=== PATIENT | female | born 1980 | race Caucasian/White ===

== ENCOUNTER 2018-01-11 00:53 | Emergency (ER) | payer SELFPAY ==
[2018-01-11 02:25] VITALS: BP 127/81
--- NOTE | 2018-01-11 03:11 | Emergency Department Report ---
ED Extremity Problem HPI - General Chief complaint: Extremity Injury, Lower Stated complaint: INGROWN TOENAIL-RT Time Seen by Provider: 01/11/18 03:06 Source: patient Mode of arrival: Ambulatory Limitations: No Limitations - History of Present Illness Initial comments: 37-year-old female comes in for right toenail pain started 1.5 weeks ago. Patient reports this is read and painful. She reports that she got her nails done and a nail shop and they cut the nail too short. Patient reports that she's been soaking it in Epsom salts and has been taking Tylenol. Patient currently has no allergies she takes no medications and has no past medical history. LMP 12/21/2017. Complaint: extremity pain, extremity swelling -: week(s) (1.5) Location: right History of Same: No Radiation: none Severity scale (0 -10): 7 Quality: aching Consistency: intermittent Improves with: nothing Worsens with: palpation Associated Symptoms: denies other symptoms - Related Data Previous Rx's Medication Instructions Recorded Last Taken Type Ibuprofen 600 mg PO Q8H #15 tablet 01/11/18 Unknown Rx Sulfamethoxazole/Trimethoprim 1 each PO BID #20 tablet 01/11/18 Unknown Rx [Bactrim Ds Tablet] Allergies Allergy/AdvReac Type Severity Reaction Status Date / Time No Known Allergies Allergy Unverified 01/11/18 02:25 ED Review of Systems ROS: Stated complaint: INGROWN TOENAIL-RT Other details as noted in HPI Constitutional: denies: chills, fever Eyes: denies: eye pain, eye discharge, vision change ENT: denies: ear pain, throat pain Respiratory: denies: cough, shortness of breath, wheezing Cardiovascular: denies: chest pain, palpitations Endocrine: no symptoms reported Gastrointestinal: denies: abdominal pain, nausea, diarrhea Genitourinary: denies: urgency, dysuria, discharge Musculoskeletal: denies: back pain, joint swelling, arthralgia Skin: change in hair/nails (right great toe lateral) Neurological: denies: headache, weakness, paresthesias Psychiatric: denies: anxiety, depression Hematological/Lymphatic: denies: easy bleeding, easy bruising ED Past Medical Hx - Past Medical History Previous Medical History?: No - Surgical History Past Surgical History?: No - Social History Smoking Status: Never Smoker Substance Use Type: None - Medications Home Medications: Home Medications Medication Instructions Recorded Confirmed Last Taken Type Ibuprofen 600 mg PO Q8H #15 tablet 01/11/18 Unknown Rx Sulfamethoxazole/Trimethoprim 1 each PO BID #20 tablet 01/11/18 Unknown Rx [Bactrim Ds Tablet] ED Physical Exam - General Limitations: No Limitations General appearance: alert, in no apparent distress - Head Head exam: Present: atraumatic, normocephalic - Eye Eye exam: Present: normal appearance - ENT ENT exam: Present: mucous membranes moist - Neurological Exam Neurological exam: Present: alert, oriented X3 - Psychiatric Psychiatric exam: Present: normal affect, normal mood - Skin Skin exam: Present: erythema (right lateral great toe swelling and erythematous around the cuticle) ED Course Vital Signs 01/11/18 02:16 Temperature 98.4 F Pulse Rate 73 Respiratory 18 Rate Blood Pressure 127/81 O2 Sat by Pulse 95 Oximetry ED Medical Decision Making - Radiology Data Radiology results: report reviewed Unremarkable exam - Medical Decision Making Patient has been evaluated by this provider fast track. X-ray of the extremity was ordered and completed. Discussed the patient placed on antibiotics and pain medication and for her to continue with the warm Epson salt soaks. Discussed with the patient she needs to follow-up with her primary care provider if symptoms persist or gets worse Critical care attestation.: If time is entered above; I have spent that time in minutes in the direct care of this critically ill patient, excluding procedure time. ED Disposition Clinical Impression: Infected cuticle Disposition: DC-01 TO HOME OR SELFCARE Is pt being admited?: No Does the pt Need Aspirin: No Condition: Stable Instructions: Ingrown Nail (ED) Additional Instructions: Take antibiotic as prescribed. Take pain medication as prescribed. Continue with warm Epson salt soaks. Follow up with her primary care provider. Prescriptions: Ibuprofen 600 mg PO Q8H #15 tablet Sulfamethoxazole/Trimethoprim [Bactrim Ds Tablet] 1 each PO BID #20 tablet Referrals: HILDA MARTINEZ MD [Primary Care Provider] - 3-5 Days [facility] [Provider Group] - 3-5 Days
--- NOTE | 2018-01-11 03:41 | XRay Report ---
FINAL REPORT EXAM: XR FOOT 2V RT HISTORY: Right great toe pain and redness. TECHNIQUE: AP and lateral views of the right foot were submitted. FINDINGS: There is no evidence of fracture or soft tissue injury. There is no evidence of osteomyelitis. IMPRESSION: Unremarkable exam.
== END 2018-01-11 03:51 | disposition home or self-care (01) ==
LOC: ED 00:53
DX: M79.674 Pain in right toe(s) (principal); L08.89 Other specified local infections of the skin and subcutaneous tissue
CPT/HCPCS: 99283

== ENCOUNTER 2021-03-12 20:10 | Emergency (ER) | payer SELFPAY ==
[2021-03-12 21:38] LABS: Basophils % (Auto) 0.2 % (0.0-1.8); Eosinophils % (Auto) 0.2 % (0.0-4.3); Hematocrit 40.6 % (30.3-42.9); Hemoglobin 13.6 gm/dl (10.1-14.3); Lymphocytes # (Auto) 1.7 K/mm3 (1.2-5.4); Mean Corpuscular HGB Conc 34 % (30-34); Mean Corpuscular Volume 89 fl (79-97); Monocytes # (Auto) 0.9 K/mm3 (0.0-0.8); Monocytes % (Auto) 5.1 % (0.0-7.3); Platelet Count 302 K/mm3 (140-440); Red Blood Count 4.54 M/mm3 (3.65-5.03); Red Cell Distribution Width 13.1 % (13.2-15.2)
[2021-03-12 21:42] LABS: Alanine Aminotransferase 20 units/L (7-56); Albumin 4.5 g/dL (3.9-5); Blood Urea Nitrogen 14 mg/dL (7-17); Calcium 9.3 mg/dL (8.4-10.2); Hemolysis Index 28
[2021-03-12 21:43] LABS: BUN/Creatinine Ratio 23
[2021-03-12 22:51] LABS: Bilirubin,Urine NEG (Negative); Blood,Urine LG (Negative); Color,Urine Yellow (Yellow); Mucus,Urine 1+ /HPF; Urobilinogen,Urine < 2.0 mg/dL (<2.0)
[2021-03-12] MEDS ORDERED: MORPHINE 4 MG/1 ML INJ IV ONE (23:36)
[2021-03-12] MEDS ORDERED: SODIUM CHLORIDE 0.9% 1000 ML 1,000 ML IV ONE (23:36)
[2021-03-12] MEDS ORDERED: ONDANSETRON 4 MG/2 ML INJ IV ONE (23:36)
--- NOTE | 2021-03-13 03:15 | Cat Scan Report ---
CT ABDOMEN AND PELVIS WITH CONTRAST HISTORY: RLQ Abdominal pain, r/o Appendicitis. COMPARISON: None. TECHNIQUE: CT images of the abdomen and pelvis were obtained following administration of intravenous contrast. All CT scans at this location are performed using CT dose reduction for ALARA by means of automated exposure control. CONTRAST: 100 ml of intravenous contrast administered. FINDINGS: Lungs/bones: There is mild bibasilar atelectasis. Degenerative changes are present in the spine and pelvis with no acute osseous abnormality. Abdomen/pelvis: There is asymmetric right-sided perinephric stranding with nonobstructive nephrolith iasis measuring 2 mm in the midpole. No ureteral stone or hydronephrosis identified. A small simple c yst is present in the midpole the left kidney. There is hepatic steatosis with no focal liver mass. The gallbladder, spleen, pancreas, adrenals, and proximal GI tract appear unremarkable. Urinary bladder and reproductive organs are unremarkable with no pelvic free fluid or acute colonic a bnormality identified. The appendix is normal. IMPRESSION: 1. Inflammatory change about the right kidney. Correlate with urinalysis findings. Pyelonephritis is in the differential. 2. Normal appendix. Signer Name: Rob Chambers MD Signed: 03/13/2021 3:11 AM Workstation Name: [id number]
[2021-03-13] MEDS ORDERED: KETOROLAC 30 MG/1 ML INJ IV ONE (03:20)
[2021-03-13] MEDS ORDERED: ONDANSETRON 4 MG/2 ML INJ IV ONE (03:20)
[2021-03-13] MEDS ORDERED: cefTRIAXone/NS 1 GM/50 ML 1 GM/50 ML BAG IV ONE (03:20)
--- NOTE | 2021-03-13 04:55 | Emergency Department Report ---
ED Abdominal Pain HPI - General Chief Complaint: Abdominal Pain Stated Complaint: STOMACH PAIN Source: patient Mode of arrival: Ambulatory Limitations: Language Barrier - History of Present Illness Initial Comments: Patient is a nulliparous 40-year-old female with no past medical history presents to the ED with complaint of acute onset persistent right lower quadrant abdominal pain that radiates to the right flank and suprapubic area with intractable nausea and vomiting for the last 12 hours. Patient states that she has not been able to keep anything down since the onset of the symptoms because of persistent nausea and vomiting. Patient states that she is at the end of her menstrual cycle which has been going on for last 1 week. Patient denies fever, chills, diarrhea, dysuria, urinary frequency and urgency, vaginal discharge, low back pain, chest pain or shortness of breath, sore throat, dizziness, syncope or change in vision and cough. MD Complaint: abdominal pain (Right lower quadrant abdominal pain), other (Intractable nausea and vomiting) -: Sudden, hour(s) (12) Location: RLQ, suprapubic, R flank Radiation: RLQ, suprapubic, R flank Migration to: no migration Severity scale (0 -10): 3 Quality: cramping, aching, sharp Consistency: constant Improves With: nothing Worsens With: movement Associated Symptoms: denies other symptoms, nausea, vomiting, anorexia. denies: diarrhea, fever, chills, dysuria, hematemesis, hematochezia, melena, hematuria, syncope - Related Data LMP Date: 03/06/21 Previous Rx's Medication Instructions Recorded Last Taken Type Ibuprofen 600 mg PO Q8H #15 tablet 01/11/18 Unknown Rx Sulfamethoxazole/Trimethoprim 1 each PO BID #20 tablet 01/11/18 Unknown Rx [Bactrim Ds Tablet] Acetaminophen/Codeine [Tylenol 1 tab PO Q6H PRN #12 tab 03/13/21 Unknown Rx /Codeine # 3 tab] Ibuprofen [Motrin] 800 mg PO Q8HR PRN #30 tablet 03/13/21 Unknown Rx Ondansetron [Zofran Odt] 4 mg PO Q6HR PRN #20 tab.rapdis 03/13/21 Unknown Rx Tamsulosin [Flomax] 0.4 mg PO QDAY #7 cap 03/13/21 Unknown Rx levoFLOXacin [Levaquin TAB] 500 mg PO QDAY #10 tablet 03/13/21 Unknown Rx Allergies Allergy/AdvReac Type Severity Reaction Status Date / Time No Known Allergies Allergy Unverified 01/11/18 02:25 ED Review of Systems ROS: Stated complaint: STOMACH PAIN Other details as noted in HPI Constitutional: denies: chills, fever Eyes: denies: eye pain, eye discharge, vision change ENT: denies: ear pain, throat pain Respiratory: denies: cough, shortness of breath, wheezing Cardiovascular: denies: chest pain, palpitations Endocrine: no symptoms reported Gastrointestinal: abdominal pain (Right flank and right lower quadrant pain), nausea, vomiting. denies: diarrhea, constipation, hematemesis, hematochezia Genitourinary: denies: urgency, dysuria, discharge Musculoskeletal: denies: back pain, joint swelling, arthralgia Skin: denies: rash, lesions Neurological: denies: headache, weakness, paresthesias Psychiatric: denies: anxiety, depression Hematological/Lymphatic: denies: easy bleeding, easy bruising ED Past Medical Hx - Past Medical History Previous Medical History?: No (Also uses) - Surgical History Past Surgical History?: No - Social History Smoking Status: Never Smoker - Medications Home Medications: Home Medications Medication Instructions Recorded Confirmed Last Taken Type Ibuprofen 600 mg PO Q8H #15 tablet 01/11/18 Unknown Rx Sulfamethoxazole/Trimethoprim 1 each PO BID #20 tablet 01/11/18 Unknown Rx [Bactrim Ds Tablet] Acetaminophen/Codeine [Tylenol 1 tab PO Q6H PRN #12 tab 03/13/21 Unknown Rx /Codeine # 3 tab] Ibuprofen [Motrin] 800 mg PO Q8HR PRN #30 tablet 03/13/21 Unknown Rx Ondansetron [Zofran Odt] 4 mg PO Q6HR PRN #20 tab.rapdis 03/13/21 Unknown Rx Tamsulosin [Flomax] 0.4 mg PO QDAY #7 cap 03/13/21 Unknown Rx levoFLOXacin [Levaquin TAB] 500 mg PO QDAY #10 tablet 03/13/21 Unknown Rx ED Physical Exam - General Limitations: Language Barrier General appearance: alert, in no apparent distress - Head Head exam: Present: atraumatic, normocephalic, normal inspection - Eye Eye exam: Present: normal appearance, PERRL, EOMI Pupils: Present: normal accommodation - ENT ENT exam: Present: normal exam, normal orophraynx, mucous membranes moist, TM's normal bilaterally, normal external ear exam - Neck Neck exam: Present: normal inspection, full ROM - Respiratory Respiratory exam: Present: normal lung sounds bilaterally. Absent: respiratory distress, wheezes, rales, rhonchi, chest wall tenderness, accessory muscle use - Cardiovascular Cardiovascular Exam: Present: regular rate, normal rhythm, normal heart sounds. Absent: systolic murmur, diastolic murmur, rubs, gallop - GI/Abdominal GI/Abdominal exam: Present: soft, tenderness (Palpable right lower quadrant and right flank tenderness, no guarding or rebound), normal bowel sounds. Absent: guarding, rebound, hyperactive bowel sounds, hypoactive bowel sounds, orga nomegaly - Extremities Exam Extremities exam: Present: normal inspection, full ROM, normal capillary refill - Back Exam Back exam: Present: normal inspection, full ROM. Absent: tenderness, CVA tenderness (R), CVA tenderness (L), muscle spasm, paraspinal tenderness, vertebral tenderness - Neurological Exam Neurological exam: Present: alert, oriented X3, CN II-XII intact, normal gait, reflexes normal - Psychiatric Psychiatric exam: Present: normal affect, normal mood - Skin Skin exam: Present: warm, dry, intact, normal color. Absent: rash ED Course Vital Signs 03/12/21 03/12/21 03/13/21 20:57 23:51 00:21 Temperature 98.2 F Pulse Rate 76 Respiratory 18 16 16 Rate Blood Pressure 122/73 Blood Pressure [Left] O2 Sat by Pulse 97 Oximetry 03/13/21 03/13/21 00:24 03:28 Temperature 98.6 F Pulse Rate 70 Respiratory 18 16 Rate Blood Pressure Blood Pressure 120/70 [Left] O2 Sat by Pulse 95 Oximetry ED Medical Decision Making - Lab Data Result diagrams: 03/12/21 21:09 03/12/21 21:09 - Radiology Data Radiology results: report reviewed, image reviewed [facility] [address] [place] [address] Cat Scan Report Signed Patient: MONIQUE FORD MR#: [id number] : 1980 Acct:[id number] Age/Sex: 40 / F ADM Date: 03/12/21 Loc: ED Attending Dr: Ordering Physician: DOC CALABRESE Date of Service: 03/12/21 Procedure(s): CT abdomen pelvis w con Accession Number(s): [id number] cc: DOC CALABRESE CT ABDOMEN AND PELVIS WITH CONTRAST HISTORY: RLQ Abdominal pain, r/o Appendicitis. COMPARISON: None. TECHNIQUE: CT images of the abdomen and pelvis were obtained following a dministration of intravenous contrast. All CT scans at this location are performed using CT dose reduction for ALARA by means of automated exposure control. CONTRAST: 100 ml of intravenous contrast administered. FINDINGS: Lungs/bones: There is mild bibasilar atelectasis. Degenerative changes are present in the spine and pelvis with no acute osseous abnormality. Abdomen/pelvis: There is asymmetric right-sided perinephric stranding with nonobstructive nephrolithiasis measuring 2 mm in the midpole. No ureteral stone or hydronephrosis identified. A small simple cyst is present in the midpole the left kidney. There is hepatic steatosis with no focal liver mass. The gallbladder, spleen, pancreas, adrenals, and proximal GI tract appear unremarkable. Urinary bladder and reproductive organs are unremarkable with no pelvic free fluid or acute colonic abnormality identified. The appendix is normal. IMPRESSION: 1. Inflammatory change about the right kidney. Correlate with urinalysis findings. Pyelonephritis is in the differential. 2. Normal appendix. Signer Name: Rob Chambers MD Signed: 03/13/2021 3:11 AM Workstation Name: [id number] Transcribed By: Dictated By: Rob Chambers MD Electronically Authenticated By: Rob Chambers MD Signed Date/Time: 03/13/21310 DD/ 7 TD/TT: - Medical Decision Making This is a nulliparous 40-year-old female with no past medical history presents to the ED with complaint of acute onset persistent right lower quadrant abdominal pain that radiates to the right flank and suprapubic area with intractable nausea and vomiting for the last 12 hours. Patient states that she has not been able to keep anything down since the onset of the symptoms because of persistent nausea and vomiting. Patient states that she is at the end of her menstrual cycle which has been going on for last 1 week. In the ED, patient is alert and oriented x3 and is not in any distress but appears to be in pain. Lab test results were reviewed and showed acute leukocytosis of 16,700. The rest of the lab test results are nonactionable. The abdomen pelvis CT scan with contrast showed inflammatory change about the right kidney. Correlate with urinalysis findings. Pyelonephritis is in the differential. It also showed a no rmal appendix. Patient was treated for pain in the ED and also given antiemetics and also normal saline 1 L IV bolus x1. Based on the lab test results and imaging reports, patient also received Rocephin 1 g IV x1 for suspected acute pyelonephritis. On reevaluation, patient's pain is well controlled with medications. Nausea and vomiting also resolved while in the ED. Patient was therefore discharged home on pain medications, antiemetics and antibiotics and advised to follow-up with her primary care physician in 5 to 7 days for reevaluation or return to the ED immediately if symptoms get worse. The patient's history, and physical exam were performed through [place] languages and literature instructor who explained to the patient the details of every test and the results, as well as discharge instructions in [place]ian. Patient verbalized understanding. - Differential Diagnosis Appendicitis; ovarian cyst; UTI; kidney stone; uterine fibroids; Critical care attestation.: If time is entered above; I have spent that time in minutes in the direct care of this critically ill patient, excluding procedure time. ED Disposition Clinical Impression: Acute abdominal pain in right lower quadrant, Acute pyelonephritis, Nausea and vomiting in adult patient, Right renal stone Disposition: DC- TO HOME OR SELFCARE Is pt being admited?: No Does the pt Need Aspirin: No Condition: Stable Instructions: Abdominal Pain (ED), Kidney Stones, [id number], Renal Colic, [id number], Flank Pain, Adult, [id number], Abdominal Pain, Adult, [id number], Nausea and Vomiting, Adult, [id number], Pyelonephritis, Adult, [id number] Additional Instructions: Los resultados de margoth pruebas de laboratorio mostraron leah inflamacin significativa caracterizada por leah elevacin significativa de los glbulos blancos. El sobeida de los resultados de las pruebas de laboratorio no son destacables. La tomografa computarizada de abdomen y pelvis con contraste mostr inflamacin e hinchazn significativas alrededor del rin derecho compatible con leah infeccin aguda del rin derecho que probablemente se deba a leah infeccin del tracto urinario. Tambin mostr un clculo renal de 2 mm dentro del rin derecho sin evidencia de hidronefrosis o clculos renales dentro del urter derecho. El apndice es normal. No se identifica ninguna otra anomala aguda en el estudio de imgenes. Por lo tanto, es probable que margoth sntomas se deban a leah infeccin alrededor del rin derecho que causa nuseas y vmitos importantes. Por lo tanto, tome los medicamentos con alimentos, lisa muchos lquidos y britta un seguimiento con venegas mdico de atencin primaria en 7 a 10 cota para leah reevaluacin. Regrese al servicio de urgencias de inmediato si los sntomas empeoran. Prescriptions: Tamsulosin [Flomax] 0.4 mg PO QDAY #7 cap levoFLOXacin [Levaquin TAB] 500 mg PO QDAY #10 tablet Ibuprofen [Motrin] 800 mg PO Q8HR PRN #30 tablet PRN Reason: Pain , Severe (7-10) Acetaminophen/Codeine [Tylenol /Codeine # 3 tab] 1 tab PO Q6H PRN #12 tab PRN Reason: Pain , Severe (7-10) Ondansetron [Zofran Odt] 4 mg PO Q6HR PRN #20 tab.rapdis PRN Reason: Nausea Referrals: [facility] [Provider Group] - 3-5 Days Time of Disposition: 04:54 Print Language: GREENLAND[place]
[2021-03-13 05:33] VITALS: BP 122/70
== END 2021-03-13 05:33 | disposition home or self-care (01) ==
LOC: ED 20:10
DX: N10 Acute pyelonephritis (principal); N20.0 Calculus of kidney; R11.2 Nausea with vomiting, unspecified; R10.31 Right lower quadrant pain; Z79.899 Other long term (current) drug therapy
CPT/HCPCS: 36415; 74177; 80053; 81001; 83690; 84703; 85025; 96361; 96365; 96375; 96376; 99284; J0696; J1885; J2270; J2405; J7030; Q9967